=== PATIENT | female | born 1955 | race Caucasian/White ===

== ENCOUNTER 2024-07-23 10:08 | Emergency (ER) | payer MEDICAID, MEDICARE ==
[~2024-07-23] VITALS: Ht 152.4 cm; Wt 63.5 kg
[~2024-07-23 10:08] MED LIST: ASPI-1406 MT; B12/1TAB MT; LOSA-413 PO; NITR-87 MT
[2024-07-23 10:09] VITALS: O2SAT 100
[2024-07-23 10:57] VITALS: BP 134/82; PULSE 89; RESP 16; TEMP 36.8; O2SAT 98
[2024-07-23 12:14] VITALS: TEMP 98.3
[2024-07-23] MEDS: ACETAMINOPHEN 500MG TABLET PO NR (12:14)
== END 2024-07-23 13:30 | disposition home or self-care (01) ==
LOC: ER 10:08
DX: M79.642 Pain in left hand (principal); R07.89 Other chest pain; E11.9 Type 2 diabetes mellitus without complications; M19.042 Primary osteoarthritis, left hand; I62.9 Nontraumatic intracranial hemorrhage, unspecified; F10.90 Alcohol use, unspecified, uncomplicated; Z79.82 Long term (current) use of aspirin; Z79.899 Other long term (current) drug therapy; Z98.890 Other specified postprocedural states; Z88.6 Allergy status to analgesic agent; Z98.51 Tubal ligation status; W01.0XXA Fall on same level from slipping, tripping and stumbling without subsequent striking against object, initial encounter; Y93.01 Activity, walking, marching and hiking; Y92.89 Other specified places as the place of occurrence of the external cause; Y99.8 Other external cause status; Y90.9 Presence of alcohol in blood, level not specified
CPT/HCPCS: 71101; 73120; 99284

== ENCOUNTER 2024-10-27 21:07 | Emergency (ER) | payer MEDICARE, MEDICAID ==
[~2024-10-27] VITALS: Ht 152.4 cm; Wt 75.0 kg
[2024-10-27 21:22] VITALS: O2SAT 100
[2024-10-27] MEDS: ACETAMINOPHEN 500MG TABLET PO ONE (23:10)
[2024-10-28] MEDS ORDERED: NAPR-1176 MT (01:12)
[2024-10-28 01:35] VITALS: BP 149/77; PULSE 89; RESP 16; TEMP 37; O2SAT 100
== END 2024-10-28 01:50 | disposition home or self-care (01) ==
LOC: ER 21:07
DX: S09.90XA Unspecified injury of head, initial encounter (principal); E11.9 Type 2 diabetes mellitus without complications; I10 Essential (primary) hypertension; Z79.899 Other long term (current) drug therapy; Z79.82 Long term (current) use of aspirin; Z79.1 Long term (current) use of non-steroidal anti-inflammatories (NSAID); Z98.51 Tubal ligation status; Z98.890 Other specified postprocedural states; Z88.6 Allergy status to analgesic agent
CPT/HCPCS: 99284